=== PATIENT | female | born 2000 | race Caucasian/White ===

== ENCOUNTER 2024-11-07 00:50 | Emergency (ER) | payer BC, SELFPAY ==
[2024-11-07 00:51] VITALS: BP 110/71
[2024-11-07 01:14] LABS: % Basophils 0.4 % (0-2); % Eosinophils 1.5 % (0-6); % Immature Granulocytes 0.2 % (0-0.5); % Lymphocytes 32.6 % (20.5-51.1); % Monocytes 7.7 % (1.7-9.3); % Neutrophils 57.6 % (42.2-75.2); Absolute Eosinophils 0.1 10^3/uL (0-0.7); Absolute Lymphocytes 2.8 10^3/uL (1.2-3.4); Absolute Monocytes 0.7 10^3/uL (0.1-0.6); Absolute Neutrophils 4.9 10^3/uL (1.4-6.5); Hematocrit 36.3 % (37.0-47.0); Hemoglobin 12.5 g/dL (12.0-16.0); Mean Corp Hgb Conc. 34.4 g/dL (33.0-37.0); Mean Corpuscular Hgb 29.2 pg (27.0-31.0); Mean Corpuscular Volume 84.8 fL (81.0-99.0); Mean Platelet Volume 10.8 fL (7.4-10.4); Nucleated Red Blood Cells % 0 %; Platelet Count 178 10^3/uL (130-400); Red Blood Cell Count 4.28 10^6/uL (4.20-5.40); Red Cell Dist. Width 12.8 % (11.5-14.5); White Blood Cell Count 8.4 10^3/uL (4.8-10.8)
[2024-11-07 01:39] LABS: ALT (SGPT) 30 U/L (0-35); AST (SGOT) 25 U/L (14-36); Albumin 3.8 g/dl (3.5-5.0); Alkaline Phosphatase 68 U/L (38-126); Blood Urea Nitrogen 16 mg/dl (7-17); Calcium 9.3 mg/dl (8.4-10.2); Carbon Dioxide 26 mmol/L (22-30); Chloride 108 mmol/L (98-107); Glucose 110 mg/dl (70-99); Potassium 3.8 mmol/L (3.5-5.1); Sodium 140 mmol/L (135-145); Total Bilirubin 0.7 mg/dl (0.2-1.3); eGFR > 60.00
[2024-11-07 01:59] LABS: HCG, Serum Qualitative Screen Negative
[2024-11-07 02:49] VITALS: BP 115/69; BMI 24.9
--- NOTE | 2024-11-07 03:04 | ED.GENMED ---
History of Present Illness
General
Chief Complaint: Abdominal Pain
Source: patient
Exam Limitations: none
Time Seen by Provider: 11/07/24 02:51
Nursing documentation reviewed up to this point in time: agreed with
History of Present Illness
History of Present Illness:
This is a 24-year-old female with no significant past medical history but does admit to some chronic constipation. Last bowel movement approximately 4 days ago, small firm marbles. She complains of periumbilical to lower abdominal discomfort that
began mildly around 3 PM yesterday. With intermittent sharp stabbing pains. Pain has worsened and is now primarily located left lower quadrant with intermittent waves of increased pain. She denies back pain or flank pain, no fever nor chills, no
dysuria and urgency and or hematuria.
Last menstrual period 1-1/2 weeks ago. She discontinued control pills 1 month ago. She takes no medicines on a daily basis.
She has not attempted to take anything for her discomfort.
No prior history of ovarian cysts.
Past History
Past History
ED Past Medical History: None
ED Past Surgical History: Orthopedic
Social History
Tobacco: Non-smoker
Personal: Single
Living: with family
Family History
Family History: Other (Noncontributory)
Phy Exam
Physical Exam
Physical Exam:
GENERAL: 24-year-old female appears her stated age, awake and alert, pleasant, appears in no acute distress. Mother is accompanying.
EYE: anicteric
NECK: Supple, nontender, no meningismus, no significant adenopathy.
ENT: oral mucosa is moist. No rhinorrhea.
CARDIAC: Regular rate and rhythm. no murmur.
LUNGS: Clear breath sounds bilaterally, no acute respiratory distress, no wheezes/rales/rhonchi
ABDOMEN: Soft, nondistended, moderate tenderness left lower quadrant with questionable palpably firm stool in the left lower quadrant, no r/g, no cvat. normoactive BS.
NEUROLOGICAL: Alert and oriented x3, no focal neuro deficits. Gait is mendez and steady.
SKIN: Warm and dry, normal color, skin intact. No rash.
MUSCULOSKELETAL: No C/C/E. peripheral pulses are full and equal b/l. No palpable tenderness.
PSYCH: Normal and appropriate interaction.
Course
Orders/Labs/Results
Orders:
Orders
11/07/24 00:57
Test Result ONCE
11/07/24 01:03
Complete Blood Count/With Diff Urgent
Comprehensive Metabolic Panel Urgent
HCG, Serum Qualitative Screen Urgent
11/07/24 02:55
Urinalysis Reflex To Culture Urgent
Date Specimen was Collected: 11/07/24
Time Specimen was Collected: 02:54
Urine Microscopic Reflex Cult Urgent
Urine Culture Urgent
FE Source: U
Specimen Description:
Date Specimen was Collected: 11/07/24
Time Specimen was Collected: 02:54
11/07/24 03:03
CR Obstruct Series W/pa Chest Urgent
Comment:
Reason For Exam: LLQ pain x 1 day-constipation
US Pelvis Only (non-obstetric) Urgent
Comment:
Reason For Exam: ACUTE LLQ pain.
Abnormal Lab Results
11/07/24 11/07/24
01:03 02:55
Hct 36.3 L %
(37.0-47.0)
MPV 10.8 H fL
(7.4-10.4)
Absolute Monos (auto) 0.7 H 10^3/uL
(0.1-0.6)
Chloride 108 H mmol/L
(98-107)
Glucose 110 H mg/dl
(70-99)
Total Protein 6.0 L g/dl
(6.3-8.2)
Ur Occult Blood Reflex 1+ A
(Negative)
Urine Bacteria (Reflex) Moderate A
(Negative)
Urine Albumin (Reflex) 1+ A
(Neg - Trace)
11/07/24 01:03
11/07/24 01:03
Vital Signs
Initial and Last Documented VS:
Initial Vital Signs
Temp Pulse Resp BP Pulse Ox
98.2 F 78 16 110/71 99
11/07/24 00:51 11/07/24 00:51 11/07/24 00:51 11/07/24 00:51 11/07/24 00:51
Last Documented Vital Signs
Temp Pulse Resp BP Pulse Ox
98.2 F 58 16 109/62 99
11/07/24 00:51 11/07/24 04:22 11/07/24 04:22 11/07/24 04:22 11/07/24 04:22
MDM/Problems Addressed
Differential Diagnosis Includes:
Concern for exacerbation of constipation, other consideration is left ovarian cyst, ovarian torsion, UTI, less likely ureteric stone.
Labs are all within normal limits. hCG is negative.
Will check obstruction series and will plan for pelvic ultrasound.
Chronic conditions affecting care: Other (History of constipation)
*Radiology
Radiology exam reviewed: preliminary read by ED provider (Obstruction series shows stool throughout the colon without significant constipation or obstruction.) and radiology read reviewed
*Pulse Oximetry
Patient hypoxic: no
*Critical Care Note
Total Time (30-74mins, 75-104mins- exclusive of procedures): Not Applicable
Update Note
Update Note:
06:10
Patient remains comfortable since arrival to the ED, minimal tenderness left lower quadrant.
Ultrasound shows a large, 6.8 cm left ovarian cyst with internal septations. There is demonstration of blood flow to the ovarian parenchyma along the margins of the cyst arguing against torsion. Right ovary is normal. Uterus is normal. Trace
simple free fluid in the pelvis.
As patient is overall comfortable without return of pain, at this point no indication for torsion however must consider intermittent torsion as cause for pain earlier this evening.
Obstruction series shows moderate stool throughout the colon without obstipation nor obstruction.
I do suspect her left lower quadrant pain is this large ovarian cyst in nature but as she is currently quite comfortable we will plan for discharge to home with recommendations for prompt follow-up with her editorial specialist, [facility].
Strict return precautions discussed.
ED Attending Note
-
Portions of this chart may have been created with voice recognition software.� Occasional wrong word or��sound alike� substitutions may have occurred due to the inherent limitations of voice recognition software.
Discharge Plan
Departure
Patient Disposition: Home (Routine Discharge)
Date of Disposition: 11/07/24
Time of Disposition: 06:12
Patient with high blood pressure during this ER visit?: No
Condition: Good
Discharge Problem:
Cyst of left ovary
Instructions: Constipation, Adult (DC), Ovarian cyst - ED discharge instructions
Prescriptions:
No Action
No Current Medications
0
Referrals:
UNKNOWN - PT DOES,NOT KNOW [Family Provider] -
Barbara Chino MD [Active] - Follow up in 2-3 days
Interventions
Interventions:
*Risk Screen - Suicide Last Done: 11/07/24 00:51
*General Assessment Last Done: 11/07/24 02:50
*Neglect/Abuse Screening Last Done: 11/07/24 02:50
*ED- Fall Risk Assessment Last Done: 11/07/24 02:50
*ED COVID-19 Vaccine History Last Done: 11/07/24 02:50
BP-Zvdupp-Giqkqncbhr Assessment Last Done: 11/07/24 03:04
Discharge Date and Time
Print Language: WELSH
[2024-11-07 03:22] LABS: Urine Albumin 1+ (Neg - Trace); Urine Bilirubin Negative (Negative); Urine Character Clear (Clear); Urine Color Yellow; Urine Glucose Negative (Negative); Urine Ketone Negative (Negative); Urine Leukocyte Negative (Negative); Urine Nitrite Negative (Negative); Urine Occult Blood 1+ (Negative); Urine Specific Gravity 1.025 (<1.030); Urine Urobilinogen Negative (Neg - 1+)
[2024-11-07 03:48] LABS: Urine Calcium Oxalate Crystals Seen
[2024-11-07 03:49] LABS: Urine Bacteria Moderate (Negative); Urine Mucus Few; Urine Red Blood Cell 0-2 /HPF (0-2); Urine Squamous Cell >30 /LPF (Few); Urine White Cell 0-2 /HPF (0-5)
[2024-11-07 04:22] VITALS: BP 109/62
[2024-11-07 06:24] VITALS: BP 108/66
== END 2024-11-07 06:24 | disposition home or self-care (01) ==
LOC: EMR 00:50
PROVIDERS: EMERGENCY PHYSICIAN Emergency Medicine
DX: N83.202 Unspecified ovarian cyst, left side (principal); R10.9 Unspecified abdominal pain; K59.00 Constipation, unspecified
CPT/HCPCS: 99284; 74022; 76856; 80053; 81003; 81015; 84703; 85025; 87086

== ENCOUNTER → 2025-05-25 10:12 | Outpatient (REF) | payer BC, SELFPAY | LOC: HWRAD 10:12 | PROVIDERS: ATTENDING PHYSICIAN Student in an Organized Health Care Education/Training Program; FAMILY PHYSICIAN Family Medicine | DX: N83.209 Unspecified ovarian cyst, unspecified side (principal) | CPT/HCPCS: 76830; 76856 ==